=== PATIENT | male | born 2000 | race Caucasian/White ===

== ENCOUNTER 2018-05-10 19:46 | Emergency (ER) | payer SELFPAY ==
[2018-05-10 19:48] VITALS: BP 115/74; PULSE 64; RESP 16; TEMP 36.8; O2SAT 100; BMI 19.5
[2018-05-10] MEDS: Smz/Tmp Ds Tablet 1 TABLET PO (21:22)
[2018-05-10] MEDS: Diphth,Pertuss(Acell),Tet Vac 0.5 ML Vial IM (21:22)
[2018-05-10] MEDS: Cephalexin Suspension 250 MG/5 ML PO.SYRINGE 500 MG PO (21:22)
--- NOTE | 2018-05-10 22:36 | ED.VISSUMM ---
- ER Visit Summary Date of Service: 05/10/18 Chief Complaint: Left hand injury History of Present Illness: The patient is a 18 M who stabbed himself with his pocket knife in his left hand 2 days ago while working on a car. Patient states he cleansed the wound well and put a dressing on it. Today's had some increased swelling to the area. He is right-hand dominant. He is unsure of his last tetanus update. Physical Examination: Vital signs unremarkable. Patient is in no acute distress. Left upper extremity examination is significant for a 1 cm laceration to the left palm near the index MCP joint. He has full range of motion of all digits. He has mild edema to that area. There is no lymphangitic streaking or tenderness along the flexor tendons. Test Results: Left hand x-rays are obtained and unremarkable. Emergency Department Course and Treatment: Left hand was soaked and scrubbed. Dressing is applied. Tetanus update is provided and patient will be treated with Bactrim and Keflex, first doses given here. If patient develops further pain, inability to extend fingers, or pain up the hand and into the forearm he is to return immediately. Treatment Plan: [] Disposition: Discharge Impression: Stab wound left hand This note was generated with [employer] dictation software. It may contain incorrect words, spelling, and punctuation that were not noted in review of the chart prior to signing ED Disposition - Plan for ED Patient: Disposition: Home or Assisted Living Chief Complaint: Upper Extremity Injury Instructions: ED Wound Stab Prescriptions: Cephalexin [Keflex] 500 mg PO Q6 #40 capsule Smz/Tmp Ds [Bactrim Ds] 1 tablet PO BID #20 tablet Referrals: Lesvia Bach MD [Primary Care Provider] - 5-7 Days
--- NOTE | 2018-05-10 22:52 | ED.DEP ---
ED Disposition - Plan for ED Patient: Disposition: Home or Assisted Living Chief Complaint: Upper Extremity Injury Instructions: ED Wound Stab Prescriptions: Cephalexin [Keflex] 500 mg PO Q6 #40 capsule Smz/Tmp Ds [Bactrim Ds] 1 tablet PO BID #20 tablet Referrals: Lesvia Bach MD [Primary Care Provider] - 5-7 Days
[2018-05-10 23:07] VITALS: BP 111/87; PULSE 59; RESP 18; O2SAT 98
== END 2018-05-10 23:07 | disposition home or self-care (01) ==
PROVIDERS: Emergency Provider Emergency Medicine; Family Provider Pediatrics; PCP Pediatrics
DX: S61.412A Laceration without foreign body of left hand, initial encounter (principal); Z23 Encounter for immunization; W26.0XXA Contact with knife, initial encounter; Y93.89 Activity, other specified; Y92.89 Other specified places as the place of occurrence of the external cause; Y99.8 Other external cause status
CPT/HCPCS: 73130; 90471; 90715; 99283